=== PATIENT | female | born 1970 | race Caucasian/White ===

== ENCOUNTER 2019-11-04 17:29 | Emergency (ER) | payer MEDICARE ==
[~2019-11-04] VITALS: Ht 147.3 cm; Wt 77.3 kg
[2019-11-04 17:38] VITALS: BP 174/73
[2019-11-04] MEDS ORDERED: nystatin 15 GM ointment TP ONE (18:20)
[2019-11-04] MEDS ORDERED: zinc oxide ointment 30gm tube TP ONE (18:20)
[2019-11-04] MEDS ORDERED: MYCOL30CR TP (18:21)
== END 2019-11-04 19:08 | disposition home or self-care (01) ==
LOC: ER 17:30
DX: R21 Rash and other nonspecific skin eruption (principal); Z91.048 Other nonmedicinal substance allergy status; Z79.899 Other long term (current) drug therapy
CPT/HCPCS: 99283

== ENCOUNTER 2019-11-17 13:00 | Outpatient (CLI) | payer MEDICARE ==
[~2019-11-17 13:00] MED LIST: MYCOL30CR TP
[2019-11-17] MEDS ORDERED: nystatin 15 GM powder TP ONE (15:15)
== END 2019-11-17 15:42 | disposition home or self-care (01) ==
LOC: WOUND CARE 13:00 → EDSTATUS 13:00 → WOUND CARE 15:42
PROVIDERS: ATTEND Nurse Practitioner
DX: B37.89 Other sites of candidiasis (principal); R21 Rash and other nonspecific skin eruption; I10 Essential (primary) hypertension; Z79.899 Other long term (current) drug therapy
CPT/HCPCS: G0463

== ENCOUNTER 2020-12-14 08:13 | Day surgery (SDC) | payer MEDICARE, MEDICAID ==
[~2020-12-14] VITALS: Ht 147.3 cm; Wt 88.0 kg
[2020-12-14] MEDS ORDERED: normal saline 1000ml 1,000 ML IV SCH (08:40)
[2020-12-14] MEDS ORDERED: MULT-1085 PO (08:44)
[2020-12-14] MEDS ORDERED: LISI10TA27 PO (08:44)
[2020-12-14 08:50] VITALS: BP 154/68
[2020-12-14] MEDS ORDERED: heparin sodium, porcine/PF 100unit/ml 5ML syringe ONE (11:59)
[2020-12-14] MEDS ORDERED: midazolam 1 mg/ML 2ml injection ONE ×2 (11:59→12:40)
[2020-12-14] MEDS ORDERED: fentaNYL/PF 50MCG/1 ML 2ML syringe ONE ×2 (11:59→12:40)
[2020-12-14] MEDS ORDERED: LIDOcaine 1%/PF 5ML 10 MG/ML VIAL ONE (11:59)
[2020-12-14 13:06] VITALS: BP 136/74
[2020-12-14 13:22] VITALS: BP 143/60
[2020-12-14 13:37] VITALS: BP 134/82
[2020-12-14 13:51] VITALS: BP 142/84
[2020-12-14 14:06] VITALS: BP 128/76
== END 2020-12-14 14:20 | disposition home or self-care (01) ==
LOC: SSTAY O 08:13
PROVIDERS: ATTEND Radiology Diagnostic Radiology
DX: C50.411 Malignant neoplasm of upper-outer quadrant of right female breast (principal); Z88.8 Allergy status to other drugs, medicaments and biological substances; Z79.899 Other long term (current) drug therapy
CPT/HCPCS: 36561; 76937; 77001; 99152; 99153; C1769; C1788; C1894; J1642; J2250; J3010; J7030